=== PATIENT | female | born 1985 | race Caucasian/White ===

== ENCOUNTER 2017-05-26 14:52 | Emergency (ER) | payer SELFPAY ==
--- NOTE | 2017-05-26 15:00 | ED Physician Documentation ---
Psychological Disorders - HISTORIAN Historian: patient - HPI Stated Complaint: bipolar Chief Complaint: Psychological Disorder Onset: other (years ) Duration: constant Intent: denies: suicide, wants to escape, no prior thoughts, prior thoughts of suicide Severity: mild Situational Problems: Yes (she was in [facility] and no ride home ) Related To: other (no ride home after [facility] time ) Further Comments: yes (She states she was in [facility] and she was released with no ride home. She states she has been without her meds for bipolar and anxiety for one week. She denies any thoughts of suicide. She has some mild fatigue. she has no ride home. No support system. No money) - Associated Symptoms Symptoms: depressed, frustrated Suicidal: other (no suicidal thoughts) - ROS CONST: none NEURO/PSYCH: none EYES/ENT: none CVS/RESP: none GI/: denies: nausea, vomiting, abdominal pain MS/SKIN/LYMPH: denies: leg swelling, rash - PAST HX Psychiatric problems: bipolar disorder, depression, other (anxiety ) DVT/PE Risk Factors: none Lung, Cardiac, DM: other (none ) Surgical History: no surgical history Immunizations: referred to PCP Allergies/Adverse Reactions: Allergies Allergy/AdvReac Type Severity Reaction Status Date / Time No Known Allergies Allergy Verified 05/26/17 15:07 Home Medications: Ambulatory Orders Medication Instructions Recorded Escitalopram Oxalate [Lexapro] 10 mg PO DAILY 05/26/17 Olanzapine [Zyprexa] 5 mg PO BID 05/26/17 Olanzapine [Zyprexa] 20 mg PO HS 05/26/17 - Social HX Smoking History: cigarettes Marital Status: single Drug Use: marijuana - Family HX Family HX: other - VITAL SIGNS Vital Signs: Vital Signs Temp Pulse Resp BP Pulse Ox 97.6 F 83 16 98/70 99 05/26/17 14:52 05/26/17 14:52 05/26/17 14:52 05/26/17 14:52 05/26/17 14:52 - REVIEWED ASSESSMENTS Nursing Assessment Reviewed: Yes Vitals Reviewed: Yes Progress - Progress Progress: 1600: resting quietly in the bed. she did tell the protective services social worker she also uses meth and she has been harassed online. DG 1800: sleeping in room awaiting a inpatient treatment by protective services social worker DG 1850: Pt is not accepted due to not meeting inpt criteria she will go to the [facility] and transition social worker will continue to work on placement tomorrow DG ED Results Lab/Radiology - Lab Results Lab Results: Lab Results 05/26/17 05/26/17 16:30 16:30 WBC 13.10 K/ul H K/ul (4.00-12.00) RBC 5.06 M/ul M/ul (3.90-5.20) Hgb 13.8 g/dL g/dL (12.0-16.0) Hct 43.9 % % (34.5-46.5) MCV 86.7 fl fl (80.0-100.0) MCH 27.3 pg L pg (28.0-34.0) MCHC 31.5 g/dL g/dL (30.0-36.0) RDW 12.9 % % (11.3-14.3) Plt Count 309 K/mm3 K/mm3 (130-400) Neut % (Auto) 78.8 % % (39.0-79.0) Lymph % (Auto) 14.7 % L % (16.0-50.0) Sandoval % (Auto) 3.7 % % (0.0-11.0) Eos % (Auto) 1.1 % % (0.0-6.8) Baso % (Auto) 0.5 (0.0-1.5) Neut # (Auto) 10.3 # k/uL H # k/uL (1.4-7.7) Lymph # (Auto) 1.9 # k/uL # k/uL (0.6-4.0) Sandoval # (Auto) 0.5 # k/uL # k/uL (0.0-0.9) Eos # (Auto) 0.1 # k/uL # k/uL (0.0-0.6) Baso # (Auto) 0.1 # k/uL # k/uL (0.0-0.5) Reactive Lymphs % 1.3 % % (0.0-5.0) Reactive Lymphs # 0.2 # k/uL # k/uL (0.0-0.8) Sodium 139 mmol/L mmol/L (136-145) Potassium 4.1 mmol/L mmol/L (3.5-5.1) Chloride 100 mmol/L mmol/L (98-107) Carbon Dioxide 25 mmol/L mmol/L (22-30) BUN 13 mg/dL mg/dL (7-17) Creatinine 0.70 mg/dL mg/dL (0.52-1.04) Estimated Creat Clear 94 Est GFR ( Amer) > 60 (60 - ) Est GFR (Non-Af Amer) > 60 (60 - ) Glucose 151 mg/dL H mg/dL (74-106) Calcium 9.2 mg/dL mg/dL (8.4-10.2) Total Bilirubin 1.0 mg/dL mg/dL (0.2-1.3) AST 32 U/L U/L (15-46) ALT 23 U/L U/L (13-69) Alkaline Phosphatase 63 U/L U/L (38-126) Total Protein 7.0 g/dL g/dL (6.3-8.2) Albumin 4.0 g/dL g/dL (3.5-5.0) - Orders Orders: ED Orders Category Date Time Status CBC/PLATELET/DIFF Stat Lab 05/26/17 16:30 Completed CMP Stat Lab 05/26/17 16:30 Completed UDS [DRUG SCREEN URINE MEDICAL ONLY] Routine Lab 05/26/17 Ordered URINE HCG Stat Lab 05/26/17 16:56 Ordered Psych Physical Exam - Physical Exam General Appearance: no acute distress, alert Eyes: PERRL Mental Status: depressed affect / mood Suicide Attempts: denies Orientation: nml x3 Cranial Nerves: CN's intact as tested Sensory, Motor: nml motor response Respiratory: no resp distress, chest non-tender, breath sounds normal CVS: reg rate & rhythm, heart sounds normal, equal pulses, no murmur Abdomen: non-tender Skin: warm/dry, normal color Extremities: non-tender, normal range of motion, no evidence of injury, no edema Discharge Clincal Impression: Psychiatric care Referrals: Primary DoctorArabella [Primary Care Provider] - 2 Days Comments: 1. inpatient admission per patient request 2. No accepting inpt for her current symptoms . 3. Follow up with PCP 4. Return to ER for any concerns Condition: Stable Disposition: 01 HOME, SELF-CARE Decision to Admit: NO Date of Decison to Admit: 05/26/17 Decision Time: 19:01
[2017-05-26 16:39] LABS: BASOPHILS % 0.5 (0.0-1.5); EOSINOPHILS % 1.1 % (0.0-6.8); MEAN CORPUSCULAR HEMOGLOBIN 27.3 pg (28.0-34.0); MEAN CORPUSCULAR VOLUME 86.7 fl (80.0-100.0); MONOCYTES % 3.7 % (0.0-11.0); NEUTROPHILS # 10.3 # k/uL (1.4-7.7)
[2017-05-26 16:41] LABS: eGFR (African) > 60; eGFR (Non-African) > 60
[2017-05-26 19:16] VITALS: BP 92/54
[2017-05-27 07:46] LABS: CANNABINOIDS NEGATIVE ng/mL (< 50); METHYLENEDIOXYMETHAMPHETAMINE NEGATIVE ng/mL (<500)
== END 2017-05-26 19:10 | disposition home or self-care (01) ==
LOC: ED 14:52
DX: F31.9 Bipolar disorder, unspecified (principal); F41.8 Other specified anxiety disorders; F12.90 Cannabis use, unspecified, uncomplicated
CPT/HCPCS: 36415; 80053; 80377; 81025; 85025; 99282; G0481